=== PATIENT | male | born 1965 | race African-American/Black ===

== ENCOUNTER 2018-09-13 20:09 | Emergency (ER) | payer SELFPAY ==
[~2018-09-13] VITALS: Ht 180.3 cm; Wt 184.6 kg
--- NOTE | 2018-09-13 20:29 | ED.ADGEN ---
Past History Smoking: Cigarettes Adult General Chief Complaint Chief Complaint ".. I ve had a sore throat the last two days... maybe I have strept throat..." HPI HPI Patient is a 52 year old male who presents with sore throat and subjective fevers for the past 2 days. Patient has had strep throat in the past. Patient does have sensitive to seasonal allergies and season changes. Patient has had s ome nasal congestion and posterior drainage. Has been sneezing. Patient did not receive a flu vaccination this season. Patient does not follow-up with a primary care . The patient does smoke. Patient denies any travel. Patient denies any specific ill contacts. Patient denies any history immunosuppression. Pt. denies hx of cardiac dz . Review of Systems Review of Systems Constitutional: Checked a history of fever or chills [] Eyes: Denies change in visual acuity, redness, or eye pain [] HENT: Complains of nasal congestion and sore throat [] Respiratory: Denies cough or shortness of breath [] Cardiovascular: No additional information not addressed in HPI [] GI: Denies abdominal pain, nausea, vomiting, bloody stools or diarrhea [] : Denies dysuria or hematuria [] Musculoskeletal: Denies back pain or joint pain [] Integument: Denies rash or skin lesions [] Neurologic: Denies headache, focal weakness or sensory changes [] Endocrine: Denies polyuria or polydipsia [] All other systems were reviewed and found to be within normal limits, except as documented in this note. Family History Family History Noncontributory Current Medications Current Medications Current Medications Medications (Trade) Dose Ordered Sig/Paulette Start Time Stop Time Status Last Admin Dose Admin Diphenhydramine HCl (Benadryl) 50 mg 1X ONCE 09/13/18 21:30 09/13/18 21:31 DC 09/13/18 21:48 50 MG Ibuprofen (Motrin) 600 mg 1X ONCE 09/13/18 21:30 09/13/18 21:31 DC 09/13/18 21:48 600 MG Allergies Allergies Allergies Coded Allergies Type Severity Reaction Last Updated Verified No Known Drug Allergies 09/13/18 No Physical Exam Physical Exam Constitutional: , no acute distress, non-toxic appearance. [] HENT: Normocephalic, atraumatic, bilateral external ears normal, oropharynx moist, mildly injected posterior pharynx, no oral exudates, nose swollen turbinates and rhinorrhea. Poor dentition Eyes: PERRLA, EOMI, conjunctiva normal, no discharge. [] Neck: Normal range of motion, no tenderness, supple, no stridor. [] Neck circumference is more than 17 inches Cardiovascular:Heart rate regular rhythm, no murmur [] Lungs & Thorax: Bilateral breath sounds equal at apex with scattered wheezes. Does have some basilar crackles on auscultation [] Abdomen: Bowel sounds normal, soft, no tenderness, no masses, no pulsatile mas ses. [] Obese. Skin: Warm, dry, no erythema, no rash. [] Back: No tenderness, no CVA tenderness. [] Extremities: No tenderness, no cyanosis, no clubbing, ROM intact, ankle edema. [] Neurologic: Alert and oriented X 3, normal motor function, normal sensory function, no focal deficits noted. [] Psychologic: Affect normal, judgement normal, mood normal. [] Current Patient Data Lab Results Laboratory Tests Test 09/13/18 20:28 Influenza Type A (Rapid) Negative (NEGATIVE) Influenza Type B (Rapid) Negative (NEGATIVE) Group A Streptococcus Rapid Negative (NEGATIVE) EKG EKG [] Radiology/Procedures Radiology/Procedures [] Course & Med Decision Making Course & Med Decision Making Pertinent Labs and Imaging studies reviewed. (See chart for details) Patient encouraged to stop smoking. Patient take Tylenol and ibuprofen for pain. Patient gargle with Listerine 4 times a day. Patient consider Benadryl 20/to/50 milligrams 4 times a day for nasal drainage and sore throat. Patient encouraged follow-up primary care. Patient return if any concerns. [] Final Impression Final Impression 1. Viral pharyngitis[] Dragon Disclaimer Dragon Disclaimer This electronic medical record was generated, in whole or in part, using a voice recognition dictation system. Discharge Summary Visit Information Final Diagnosis Problems Medical Problems: (1) Viral pharyngitis Status: Acute Brief Hospital Course Allergies Allergies Coded Allergies Type Severity Reaction Last Updated Verified No Known Drug Allergies 09/13/18 No Lab Results Laboratory Tests Test 09/13/18 20:28 Influenza Type A (Rapid) Negative (NEGATIVE) Influenza Type B (Rapid) Negative (NEGATIVE) Group A Streptococcus Rapid Negative (NEGATIVE) Brief Hospital Course Mr. Magana is a 52 old male who presented with viral pharyngitis Discharge Information Condition at Discharge: Improved, Stable Disposition/Orders: D/C to Home Dischare Medications Current Medications Ibuprofen (Motrin) 600 mg 1X ONCE PO Last administered on 09/13/18at 21:48; Admin Dose 600 MG; Start 09/13/18 at 21:30; Stop 09/13/18 at 21:31; Status DC Diphenhydramine HCl (Benadryl) 50 mg 1X ONCE PO Last administered on 09/13/18at 21:48; Admin Dose 50 MG; Start 09/13/18 at 21:30; Stop 09/13/18 at 21:31; Status DC Dragon Disclaimer This chart was dictated in whole or in part using Voice Recognition software in a busy, high-work load, and often noisy Emergency Department environment. It may contain unintended and wholly unrecognized errors or omissions. MORENITA YOUNG MD September 13, 2018 20:29
[2018-09-13 21:10] LABS: INFLUENZA A PATIENT NEGATIVE (NEGATIVE); INFLUENZA B PATIENT NEGATIVE (NEGATIVE)
[2018-09-13] MEDS ORDERED: diphenhydrAMINE HCL 25 MG CAPSULE PO ONE (21:30)
[2018-09-13] MEDS ORDERED: IBUPROFEN 600 MG TABLET. PO ONE (21:30)
== END 2018-09-13 21:50 | disposition home or self-care (01) ==
LOC: ER 20:09
DX: J02.8 Acute pharyngitis due to other specified organisms (principal); B97.89 Other viral agents as the cause of diseases classified elsewhere; F17.210 Nicotine dependence, cigarettes, uncomplicated
CPT/HCPCS: 87070; 87804; 87880; 99284; Q0163